=== PATIENT | male | born 1945 | race Caucasian/White ===

== ENCOUNTER 2022-09-29 08:52 | Emergency (ER) | payer OTHER ==
[~2022-09-29] VITALS: Ht 175.3 cm; Wt 110.2 kg
[2022-09-29] MEDS ORDERED: ATENOLOL100 MG PO (09:22)
[2022-09-29] MEDS ORDERED: EFFEXOR XR75 MG PO (09:22)
[2022-09-29] MEDS ORDERED: CLOPIDOGREL75 MG PO (09:23)
[2022-09-29] MEDS ORDERED: PROTONIX20 MG PO (09:23)
[2022-09-29] MEDS ORDERED: GABAPENTIN600 MG PO (09:24)
[2022-09-29] MEDS ORDERED: LOSARTAN POTASS50 MG PO (09:24)
[2022-09-29] MEDS ORDERED: NORVASC5 MG PO (09:24)
[2022-09-29] MEDS ORDERED: FUROSEMIDE40 MG PO (09:25)
[2022-09-29] MEDS ORDERED: K-TAB ER20 MEQ PO (09:25)
[2022-09-29] MEDS ORDERED: NITROSTAT0.4 MG SL (09:26)
[2022-09-29] MEDS ORDERED: ASPIRIN325 MG PO (09:27)
[2022-09-29] MEDS ORDERED: MECLIZINE HCL25 M1 PO (09:27)
[2022-09-29] MEDS ORDERED: ONDANSETRON ODT8 MG PO (09:46)
[2022-09-29 09:55] VITALS: BP 139/127
--- OUTSIDE RECORDS SUMMARY | 2022-09-29 10:04 | XMS ---
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 - 2 Visits in 30 Days CARE PROVIDERS There are no care providers on record at this time. Brittany has no Care Guidelines for this patient. Alejandro VISIT COUNT (12 MO.) [address] TOTAL 2 NOTE: Visits indicate total known visits. ED/C VISIT TRACKING (12 MO.) 09/29/2022 08:54 [facility] TYPE: Emergency COMPLAINT: - HEADACHE 09/25/2022 18:11 [facility] TYPE: Emergency DIAGNOSES: - Cervicalgia - Dorsalgia, unspecified - Fracture of nasal bones, initial encounter for open fracture - Laceration without foreign body of other part of head, initial encounter - Unspecified injury of head, initial encounter - Facial Injury - Facial Laceration - Fall - [employer] INPATIENT VISIT TRACKING (12 MO.) No inpatient visits to display in this time frame [email or web address]
== END 2022-09-29 09:56 | disposition home or self-care (01) ==
LOC: ED 08:52
DX: S06.0XAA Concussion with loss of consciousness status unknown, initial encounter (principal); W10.8XXA Fall (on) (from) other stairs and steps, initial encounter; I10 Essential (primary) hypertension; Z79.899 Other long term (current) drug therapy; Z79.82 Long term (current) use of aspirin
CPT/HCPCS: 70450; 99283-25; A9270